=== PATIENT | male | born 1995 | race Caucasian/White ===

== ENCOUNTER 2018-03-09 21:17 | Emergency (ER) | payer OTHER ==
[~2018-03-09 21:17] MED LIST: ALB18R INH; CODE118S5 PO
[2018-03-09 21:21] VITALS: BP 127/91
[2018-03-09] MEDS ORDERED: DIPHTH/TETANUS/ACEL. PERTUSSIS IM ONLY ONE (21:30)
[2018-03-09] MEDS ORDERED: CEPH500T7 PO (21:30)
--- NOTE | 2018-03-09 21:33 | ER Report ---
History and Physical Time Seen By MD: 21:20 Hx. of Stated Complaint: pt got fish hook stuck in left middle finger approx 30 mins ago. HPI/ROS CHIEF COMPLAINT: [place] in left HISTORY OF PRESENT ILLNESS: 23-year-old male patient presents to emergency room with complaint of a fishhook stuck in the left third finger. Patient states he was fishing and caught himself with the hook. Patient states he was unable to get it out. He denies having numbness or tingling. He states that his tetanus shot may been the last year or 2, however he is not sure. Allergies: Coded Allergies: No Known Drug Allergies (Unverified , 12/15/13) Home Meds Active Scripts Cephalexin 500 Mg Tab (KEFLEX 500 MG TAB) 500 Mg Tablet, 500 MG PO Q6H, #20 TAB Prov:VENTURA DUNAWAY 03/09/18 Codeine/Promethazine Hcl (PROMETHAZINE-CODEINE SYRUP) 5 Ml Syrup, 5 ML PO Q6H, # 120 ML TAKE 1 TEASPOONFUL EVERY SIX HOURS NEEDED FOR COUGH. Prov:ANNETTE ROTHMAN DO 10/11/15 Albuterol Sulfate (VENTOLIN HFA) 18 Gm Inh, 2 PUFF INH Q4-6H, #1 INH Prov:ANNETTE ROTHMAN DO 10/11/15 Past Medical/Surgical History Patient denies any pertinent medical or surgical history. Reviewed Nurses Notes: Yes Hx Smoking: No Constitutional Vital Sign - Last 24 Hours 03/09/18 21:21 Pulse 76 Resp 18 B/P (MAP) 127/91 Pulse Ox 95 O2 Delivery Room Air Physical Exam General appearance: Alert no distress. Respiratory: Chest is non tender, lungs are clear to auscultation. Cardiac: Regular rate and rhythm. Skin: Patient does have retained fishhook in left third finger. There is some blood noted on the finger, however is not actively bleeding at this time. DIFFERENTIAL DIAGNOSIS: After history and physical exam differential diagnosis was considered for retained fishhook in left third finger Medical Decision Making ED Course/Re-evaluation ED Course Patient was admitted to exam room, history and physical were obtained. Differential diagnoses were considered. On exam patient had a fish hook that was retained in the left third finger. The distal end of the finger was anesthetized using 2% lidocaine. With the patient stated he was adequately anesthetized I used a needle sweeper driver and grabbed the fishhook and removed without any difficulties. The area was cleaned and dressed by the auto body repair technician. We will go ahead and discharge patient home at this time. Patient is to follow-up with any signs of infection. We will place him on 5 days of antibiotics to prevent any infection. Patient verbalized understanding and agreement with plan. Decision to Disposition Date: Mar 09, 2018 Decision to Disposition Time: 21:28 Depart Departure Latest Vital Signs Vital Signs Date Time Temp Pulse Resp B/P (MAP) Pulse Ox O2 Delivery O2 Flow Rate FiO2 03/09/18 21:21 76 18 127/91 95 Room Air Impression: Primary Impression: Fishing hook foreign body Condition: Improved Disposition: HOME OR SELF-CARE New Scripts Cephalexin 500 Mg Tab (KEFLEX 500 MG TAB) 500 Mg Tablet 500 MG PO Q6H, #20 TAB Prov: VENTURA DUNAWAY 03/09/18 Patient Instructions: Soft Tissue Foreign Body (ED) Additional Instructions: Monitor for signs of infection; redness, swelling, heat, discharge, increasing pain or red streaking. Take Tylenol or Ibuprofen as needed for pain. Return to the ER with any concerns. You may change dressing as needed. Problem Qualifiers Primary Impression: Fishing hook foreign body Encounter type: initial encounter Qualified Codes: W45.8XXA - Other foreign body or object entering through skin, initial encounter VENTURA DUNAWAY Mar 09, 2018 21:32
== END 2018-03-09 21:45 | disposition home or self-care (01) ==
LOC: ER 21:27
DX: S61.243A Puncture wound with foreign body of left middle finger without damage to nail, initial encounter (principal); W45.8XXA Other foreign body or object entering through skin, initial encounter
CPT/HCPCS: 90471; 90715; 99283